=== PATIENT | female | born 1945 | race Caucasian/White ===

== ENCOUNTER 2025-03-29 09:30 | Outpatient (RCR) | payer MEDICARE, SELFPAY ==
[2025-01-30] VITALS (8 sets, daily range): BP systolic 83–108; BP diastolic 41–67; PULSE 72–87; RESP 16–18; TEMP 36–36.6; O2SAT 92–100
--- NOTE | 2025-01-30 15:39 | ONC.NURNOTE ---
Pt tolerated 1 unit of PRBC today, however, BP remained lower throughout infusion. Pt asymptomatic. Ambulated in hallway without difficulty. Order Entry Specialist called [facility] and updated Marilee regarding pt's blood pressure.
[2025-03-02 09:54] LABS: Hematocrit* 21.5 % (33.0-51.0); Immature Granulocytes Pct Auto 0.5 %; Mean Corpuscular HGB Conc 31 gm/dL (32-36); Mean Corpuscular Hemoglobin 33 pg (26-34); Mean Corpuscular Volume 105 fL (80-100); RDW Coefficient of Variation % 18.1 % (11.5-15.5); Red Blood Count* 2.05 m/uL (4.00-5.20); White Blood Count* 2.06 K/uL (4.50-11.00)
[2025-03-02 09:56] LABS: Immature Granulocytes Abs Auto 0.00 K/uL (0.00-0.30); Lymphocytes Absolute Auto 0.60 K/uL (0.90-2.90)
[2025-03-02 09:58] LABS: Hemoglobin* 6.7 gm/dL (12.0-16.0); Slide Review Reflex No
[2025-03-02 12:15] VITALS: BP 95/57; PULSE 78; RESP 20; TEMP 36.6; O2SAT 98
[2025-03-02 13:11] VITALS: BP 122/73; PULSE 77; RESP 18; TEMP 36.2; O2SAT 99
[2025-03-02 13:42] VITALS: BP 107/73; PULSE 71; RESP 20; TEMP 36.2; O2SAT 100
[2025-03-02 14:05] VITALS: BP 108/72; PULSE 71; RESP 18; TEMP 36.6; O2SAT 100
[2025-03-02 14:06] VITALS: BP 111/73; PULSE 74; RESP 16; TEMP 36.9; O2SAT 96
[2025-03-02] MEDS: SODIUM CHLORIDE 0.9 % (FLUSH) 10 ML SYRINGE IVF (15:18)
[2025-03-02] MEDS: HEPARIN 500 UNIT/5 ML SYRINGE IVF (15:18)
[2025-03-29 09:30] VITALS: BP 117/54; PULSE 62; RESP 20; TEMP 36.1; O2SAT 100
[2025-03-29 09:56] VITALS: BP 111/77; PULSE 65; RESP 20; TEMP 36.2; O2SAT 99
[2025-03-29 10:26] VITALS: BP 123/108; PULSE 66; RESP 16; TEMP 36.4; O2SAT 100
[2025-03-29 10:56] VITALS: BP 112/68; PULSE 67; RESP 16; TEMP 36.5; O2SAT 99
[2025-03-29 11:26] VITALS: BP 129/78; PULSE 68; RESP 16; TEMP 36.6; O2SAT 99
[2025-03-29 12:25] VITALS: BP 93/58; PULSE 76; RESP 18; TEMP 36.4; O2SAT 97
--- NOTE | 2025-03-29 16:12 | PC.NURSE ---
Patiente afebrile, vitally stable. Tolerated blood transfusion well. Transfusion ended 12:34. Heparine locked.
== END 2025-03-29 12:35 | disposition home or self-care (01) ==
LOC: CCIC 09:30
PROVIDERS: Visit Provider Clinical Nurse Specialist
DX: C34.92 Malignant neoplasm of unspecified part of left bronchus or lung (principal); D64.9 Anemia, unspecified
CPT/HCPCS: 36415; 36430; 36591; 85025; 86850; 86900; 86901; 86922; G0463; J1642; P9016